=== PATIENT | male | born 1980 | race Caucasian/White ===

== ENCOUNTER 2016-07-25 13:28 | Outpatient (CLI) ==
[2016-05-13 14:57] VITALS: BMI 33.2
[2016-07-25 14:09] LABS: HEMATOCRIT 33.5 % (42.0-52.0); MEAN CORPUSCULAR HEMOGLOBIN 21.5 pg (27.0-31.0); MEAN CORPUSCULAR HGB CONC 29.9 (31.8-35.4); RED BLOOD COUNT 4.65 10^6/ul (4.70-6.10); WHITE BLOOD COUNT 4.41 K/ul (4.2-10.2)
[2016-07-25 14:51] LABS: ALBUMIN 3.5 g/dL (3.4-5.0); ALBUMIN/GLOBULIN RATIO 0.71; BILIRUBIN,TOTAL 0.45 mg/dL (0.00-1.20); BUN/CREATININE RATIO 8.84; CALCIUM 8.9 mg/dL (8.2-10.2); CREATININE 1.13 mg/dL (0.60-1.10); TOTAL PROTEIN 8.4 g/dL (6.4-8.2)
[2016-07-27 13:47] LABS: HIV ANTIBODIES QUALITATIVE NON REACTIVE (Nonreactive)
== END 2016-07-25 13:29 | disposition home or self-care (01) ==
LOC: LAB 13:28
PROVIDERS: ATTEND Nurse Practitioner
DX: L40.0 Psoriasis vulgaris (principal); Z79.899 Other long term (current) drug therapy
CPT/HCPCS: 36415; 80053; 85027; 86701; 86803; 87340

== ENCOUNTER 2016-08-10 12:48 | Outpatient (CLI) ==
[2016-05-13 14:57] VITALS: BMI 33.2
[2016-08-10 13:29] LABS: BASOPHILS # (AUTO) 0.1 K/uL (0-0.2); EOSINOPHILS # (AUTO) 0.1 K/ul (0.0-0.7); EOSINOPHILS % (AUTO) 1.8 % (0.0-7.0); HEMATOCRIT 34.6 % (42.0-52.0); HEMOGLOBIN 10.3 g/dl (14.0-18.0); IMMATURE GRANULOCYTE % (AUTO) 0.4 % (0.0-5.0); LYMPHOCYTES # (AUTO) 1.8 K/uL (0.60-3.4); LYMPHOCYTES % (AUTO) 35.7 (10.0-50.0); MEAN CORPUSCULAR HEMOGLOBIN 20.9 pg (27.0-31.0); MEAN CORPUSCULAR HGB CONC 29.8 (31.8-35.4); MONOCYTES # (AUTO) 0.8 K/uL (0.4-2.0); MONOCYTES % (AUTO) 16.1 (0-10); NEUTROPHILS # (AUTO) 2.2 K/ul (2.0-6.9); PLATELET COUNT 403 10^3/uL (140-440); RED BLOOD COUNT 4.94 10^6/ul (4.70-6.10); WHITE BLOOD COUNT 4.96 K/ul (4.2-10.2)
[2016-08-10 14:02] LABS: ALBUMIN 3.6 g/dL (3.4-5.0); ALBUMIN/GLOBULIN RATIO 0.82; ANION GAP 15.1; BILIRUBIN,TOTAL 0.65 mg/dL (0.00-1.20); BUN/CREATININE RATIO 12.12; CALCIUM 10.3 mg/dL (8.2-10.2); CREATININE 0.99 mg/dL (0.60-1.10); POTASSIUM 3.1 mmol/L (3.5-5.1)
== END 2016-08-10 12:49 | disposition home or self-care (01) ==
LOC: CAR 12:48
PROVIDERS: ATTEND Physician Assistant
DX: R07.9 Chest pain, unspecified (principal)
CPT/HCPCS: 36415; 80053; 84439; 84443; 85025; 93005; 93010

== ENCOUNTER 2016-08-13 09:40 | Observation (INO) ==
[2016-08-13 10:50] LABS: HEMOGLOBIN 9.5 g/dl (14.0-18.0); IMMATURE GRANULOCYTE % (AUTO) 0.4 % (0.0-5.0); LYMPHOCYTES # (AUTO) 1.6 K/uL (0.60-3.4); LYMPHOCYTES % (AUTO) 15.6 (10.0-50.0); MEAN CORPUSCULAR HEMOGLOBIN 20.7 pg (27.0-31.0); MEAN CORPUSCULAR HGB CONC 29.7 (31.8-35.4); MEAN CORPUSCULAR VOLUME 69.7 fl (80.0-94.0); MONOCYTES # (AUTO) 0.9 K/uL (0.4-2.0); MONOCYTES % (AUTO) 8.9 (0-10); NEUTROPHILS # (AUTO) 7.8 K/ul (2.0-6.9); NEUTROPHILS % (AUTO) 75.1; PLATELET COUNT 416 10^3/uL (140-440); RED BLOOD COUNT 4.59 10^6/ul (4.70-6.10)
--- NOTE | 2016-08-13 10:55 | DI ---
EXAM: Chest two view, frontal and lateral views. HISTORY: Chest pain. COMPARISON: 05/13/2016. FINDINGS: The heart size is normal. There is no pulmonary vascular congestion. The lungs are norma r. No pleural effusion or pneumothorax is seen. No acute osseous abnormality identified. Since prior study, there has been no significant interval change. IMPRESSION: No acute cardiopulmonary process.
[2016-08-13 11:30] LABS: ALBUMIN 3.5 g/dL (3.4-5.0); ALBUMIN/GLOBULIN RATIO 0.88; ANION GAP 15.8; BILIRUBIN,TOTAL 0.37 mg/dL (0.00-1.20); BUN/CREATININE RATIO 14.73; CALCIUM 9.2 mg/dL (8.2-10.2); CREATININE 1.9 mg/dL (0.60-1.10); POTASSIUM 2.8 mmol/L (3.5-5.1); TOTAL PROTEIN 7.5 g/dL (6.4-8.2); TROPONIN I 0.101 ng/ml (0.0000-0.4000)
[2016-08-13] MEDS ORDERED: SODIUM CHLORIDE 1,000 ML IV STA (11:49)
[2016-08-13 12:14] LABS: OCCULT BLOOD INTERNAL QC 1 INTERNAL QC VALID; OCCULT BLOOD SAMPLE 1 NEGATIVE (NEGATIVE)
[2016-08-13 12:25] LABS: PARTIAL THROMBOPLASTIN TIME < 21.0 SEC (23.9-40.0); PROTHROMBIN TIME 10.9 SEC (9.3-11.0)
--- NOTE | 2016-08-13 12:44 | CT ---
EXAM: CT ABDOMEN AND PELVIS HISTORY: Anemia TECHNIQUE: CT abdomen and pelvis without intravenous contrast. Images were reconstructed using 5 m m section thickness. Reformations were prepared. COMPARISON: None FINDINGS: Diagnostic limitations exist without including contrast enhanced images. No focal hepatic or spleni c lesions. Gallbladder is collapsed, grossly unremarkable otherwise. Pancreas and adrenal glands a ppear normal. Kidneys and ureters appear normal. Normal abdominal aorta. No evidence of retroperi toneal or mesenteric lymphadenopathy. A few prominent nonspecific bilateral inguinal lymph nodes ar e seen. No obvious gastric pathology. No appendix is seen. General bowel gas pattern and appearance is wit hin normal limits. No diverticulosis is obvious. Urinary bladder is unremarkable. There is no mili dence of prostate enlargement. No ascites or inflammatory infiltration of the abdominal fat. Ventral abdominal wall is intact without herniation. Bones appear appropriate for age. Lung bases are clear. There is no pneumoperitoneum. IMPRESSION: No acute intra-abdominal or pelvic abnormality. No obvious etiology for anemia was fo und. Consider further workup.
--- NOTE | 2016-08-13 13:01 | ED.PDOC ---
General ED Provider: Dr. CLEOPATRA FRANKS Chief Complaint: Chest Pain Stated Complaint: chest pain Time Seen by Physician: 10:00 Mode of Arrival: Walk-In Information Source: Patient Exam Limitations: No limitations Primary Care Provider: BROCK OCONNELL Nursing and Triage Documentation Reviewed and Agree: Yes Cardiovascular Complaint Exam - Chest Pain Complaint/Exam Onset: Gradual Duration: chest pain Symptoms Are: Still present Initial Severity: Moderate Current Severity: Moderate Location: Reports: Midsternal Pain Radiates: Reports: None Character: Reports: Dull, Aching Aggravating: Reports: None Alleviating: Reports: None Associated Signs and Symptoms: Denies: Diaphoresis, Nausea, Vomiting, Fever, Palpitations, Cough, Hemoptysis, Back pain, Abdominal pain, Dizziness, Short of air, Calf pain, Calf swelling Related History: Reports: Similar episode History of Healthcare-Acquired Pneumonia: Reports: No AMI/ACS Risk Factors: Reports: Hypertension TAD Risk Factors: Reports: Hypertension Prior Care for this Complaint: No Recent Stress Test: No Recent Echo/LV Function: No JVD Present: No Subcutaneous Emphysema Present: No Diminshed Breath Sounds: No Reproducible Chest Wall Pain: No Bilateral Pulses Present: No Unequal Pulses Noted: No If Risk Factors for AMI/ACS Consider: EKG, Cardiac Enzymes Review of Systems - Review Of Systems Constitutional: Reports: No symptoms Eyes: Reports: No symptoms Ears, Nose, Mouth, Throat: Reports: No symptoms Respiratory: Reports: No symptoms Cardiac: Reports: Chest pain GI: Reports: No symptoms : Reports: No symptoms Musculoskeletal: Reports: No symptoms Skin: Reports: No symptoms Neurological: Reports: No symptoms Endocrine: Reports: No symptoms Hematologic/Lymphatic: Reports: No symptoms All Other Systems: Reviewed and Negative Past Medical History - Past Medical History Previously Healthy: No Endocrine: Reports: None Cardiovascular: Reports: Hypertension Respiratory: Reports: None Hematological: Reports: None Gastrointestinal: Reports: None Genitourinary: Reports: None Neuro/Psych: Reports: None Musculoskeletal: Reports: Arthritis, Joint Pain Cancer: Reports: None - Surgical History General Surgical History: Reports: Orthopedic (ankle ) - Family History Family History: Reports: None - Social History Smoking Status: Current every day smoker Hx Substance Use: No Alcohol Screening: Heavy Physical Exam - Physical Exam Appearance: Well-appearing, No pain distress, Well-nourished Eyes: SHO, EOMI, Conjunctiva clear ENT: Ears normal, Nose normal, Oropharynx normal Respiratory: Airway patent, Breath sounds clear, Breath sounds equal, Respirations nonlabored Cardiovascular: RRR, Pulses normal, No rub, No murmur GI/: Soft, Nontender, No masses, Bowel sounds normal, No Organomegaly Musculoskeletal: Normal strength, ROM intact, No edema, No calf tenderness Skin: Warm, Dry, Normal color Neurological: Sensation intact, Motor intact, Reflexes intact, Cranial nerves intact, Alert, Oriented Psychiatric: Affect appropriate, Mood appropriate Interpretation - Radiology Interpretation Radiology Interpretation By: Radiologist Radiology Results: No acute changes - Hospice Case Manager Rate: Tachy Rhythm: Sinus - EKG Interpretation Rate: Tachy Rhythm: Sinus Physician Notification - Case Discussed Physician Notified: [email or web address] Time of Notification: 13:00 (admitt) Critical Care Note - Critical Care Note Total Time (mins): 0 Course - Course Hematology/Chemistry: 08/13/16 10:40 08/13/16 10:40 Orders, Labs, Meds: Lab Review 08/13/16 08/13/16 10:40 11:45 WBC 10.40 H D RBC 4.59 L Hgb 9.5 L Hct 32.0 L MCV 69.7 L MCH 20.7 L MCHC 29.7 L RDW Coeff of Lissy 20.4 H Plt Count 416 Immature Gran % (Auto) 0.4 Neut % (Auto) 75.1 Lymph % (Auto) 15.6 Colbert % (Auto) 8.9 Eos % (Auto) 0.0 Baso % (Auto) 0.0 Immature Gran # (Auto) 0.0 Neut # 7.8 H Lymph # 1.6 Colbert # 0.9 Eos # 0.0 Baso # 0.0 PT 10.9 INR 1.06 APTT < 21.0 L D-Dimer < 0.19 L Sodium 136 Potassium 2.8 L Chloride 97 L Carbon Dioxide 26 Anion Gap 15.8 BUN 28 H Creatinine 1.90 H D Estimated GFR (MDRD) 40.00 BUN/Creatinine Ratio 14.73 Glucose 266 H Calcium 9.2 Total Bilirubin 0.37 AST 25 ALT 27 Alkaline Phosphatase 78 Total Creatine Kinase 52 Troponin I 0.1010 Total Protein 7.5 Albumin 3.5 Globulin 4.0 Albumin/Globulin Ratio 0.88 TSH 2.642 Free T4 0.93 Stl Occult Blood (IFOB) Negative Stool Occult Blood #2 Pending Stool Occult Blood #3 Pending Orders Category Date Time Status EKG-(ED ONLY) Stat CARDIO 08/13/16 10:26 Completed ED IV/MEDIPORT/POWERPORT .ONCE EMERGENCY 08/13/16 10:26 Active CBC W/ AUTO DIFF Stat LAB 08/13/16 10:40 Completed COMPREHENSIVE METABOLIC PANEL Stat LAB 08/13/16 10:40 Completed CREATINE KINASE Stat LAB 08/13/16 10:40 Completed D-DIMER Stat LAB 08/13/16 10:40 Completed FREE T4 (FREE THYROXINE) Stat LAB 08/13/16 10:40 Completed MOLECULAR GROUP A STREP Stat LAB 08/13/16 10:40 Results OCCULT BLOOD, STOOL Stat LAB 08/13/16 11:45 Results PARTIAL THROMBOPLASTIN TIME Stat LAB 08/13/16 10:40 Completed PT WITH INR Stat LAB 08/13/16 10:40 Completed STREP SCREEN Stat LAB 08/13/16 10:40 Results THYROID STIMULATING HORMONE Stat LAB 08/13/16 10:40 Completed TROPONIN I Stat LAB 08/13/16 10:40 Completed 0.9 % Sodium Chloride [Saline Flush] MEDS 08/13/16 10:26 Active 1 syr IVF PRN PRN Sodium Chloride 0.9% [Sodium Chloride] 1,000 ml MEDS 08/13/16 11:49 Discontinued IV BOLUS CHEST, 2 VIEWS PA & LAT Stat RADS 08/13/16 10:[address] ABDOMEN/PELVIS WO CONTRAST Stat RADS 08/13/16 11:39 Completed Medications Generic Name Dose Route Start Last Admin Trade Name Freq PRN Reason Stop Dose Admin Sodium Chloride 1 syr 08/13/16 10:26 08/13/16 10:54 Saline Flush IVF 1 syr PRN PRN Administration To flush IV Discontinued Medications Generic Name Dose Route Start Last Admin Trade Name Freq PRN Reason Stop Dose Admin Sodium Chloride 1,000 mls @ 1,000 mls/hr 08/13/16 11:49 08/13/16 11:52 Sodium Chloride IV 08/13/16 12:48 1,000 mls/hr BOLUS STA Administration Vital Signs: Temp Pulse Resp BP Pulse Ox 08/13/16 11:09 100/60 08/13/16 09:41 97.6 F 132 H 16 123/67 97 VIDAL Risk Score VIDAL Risk Score: Risk Score Odds of by 30D 0 0.1 (0.1-0.2) 1 0.3 (0.2-0.3) 2 0.4 (0.3-0.5) 3 0.7 (0.6-0.9) 4 1.2 (1.0-1.5) 5 2.2 (1.9-2.6) 6 3.0 (2.5-3.6) 7 4.8 (3.8-6.1) Departure - Departure Time of Disposition: 13:00 Disposition: HOME SELF-CARE Discharge Problem: Chest pain, Renal insufficiency, Hypokalemia Instructions: Angina (ED), Chest Pain (ED) Condition: Good Pt referred to PMD for follow-up: Yes Allergies/Adverse Reactions: Allergies No Known Allergies Allergy (Unverified 08/13/16 09:45) Home Medications: Ambulatory Orders Hydrochlorothiazide 50 mg PO DAILY 08/13/16 Hydrocodone Bit/Acetaminophen [Dixmont 5-325] 1 tab PO BEDTIME PRN 08/13/16 Hydrocodone Bit/Acetaminophen [Dixmont 5-325] 1 tab PO BID 08/13/16 Lisinopril 20 mg PO DAILY 08/13/16 Methylprednisolone [Medrol] 35 mg PO DAILY 08/13/16 Metoprolol Tartrate [Lopressor] 50 mg PO BID 08/13/16
[2016-08-13] MEDS ORDERED: POTASSIUM CHLORIDE PREMIX RUN 10 MEQ in PREMIX 100 ML WATER 1 BAG IV STA (13:13)
[2016-08-13] MEDS: SODIUM CHLORIDE 1,000 ML IV SCH (14:30)
[2016-08-13 14:54] VITALS: BMI 34.1
[2016-08-13] MEDS: BENADRYL PO STA ×2 (15:22→15:25)
[2016-08-13] MEDS: TOPROL XL PO SCH (15:22)
[2016-08-13 15:37] LABS: IMMATURE RETIC FRACTION 40.9; RETICULOCYTE % 2.32 %
[2016-08-13 16:58] LABS: OCCULT BLOOD INTERNAL QC 2 INTERNAL QC VALID; OCCULT BLOOD INTERNAL QC 3 INTERNAL QC VALID; OCCULT BLOOD SAMPLE 2 NO SPECIMEN RECEIVED (NEGATIVE); OCCULT BLOOD SAMPLE 3 NO SPECIMEN RECEIVED (NEGATIVE)
[2016-08-13 16:59] LABS: ANION GAP 12.7; BUN/CREATININE RATIO 19.14; CALCIUM 8.5 mg/dL (8.2-10.2); CREATININE 1.41 mg/dL (0.60-1.10); FERRITIN 10.45 ng/mL (21.81-274.66); FOLATE 2.5 ng/mL (3.1-20.5)
[2016-08-13] MEDS: PROTONIX PO SCH (17:02)
[2016-08-13] MEDS: CARAFATE PO SCH ×2 (17:02→20:46)
[2016-08-13 17:06] LABS: POTASSIUM 2.7 mmol/L (3.5-5.1)
[2016-08-13] MEDS ORDERED: POTASSIUM CHL 10% ORAL SOL PO STA ×2 (17:13)
[2016-08-13 19:28] LABS: TROPONIN I 0.123 ng/ml (0.0000-0.4000)
[2016-08-13] MEDS: XANAX PO SCH (20:46)
[2016-08-13] MEDS ORDERED: POTASSIUM CHL 10% ORAL SOL PO ONE ×2 (21:00)
[2016-08-13] MEDS ORDERED: LOPRESSOR PO SCH (21:00)
[2016-08-14] MEDS: SODIUM CHLORIDE 1,000 ML IV SCH (02:12)
[2016-08-14 03:24] LABS: BASOPHILS % (AUTO) 0.1 % (0.0-3.0); EOSINOPHILS % (AUTO) 0.1 % (0.0-7.0); HEMATOCRIT 29.6 % (42.0-52.0); HEMOGLOBIN 8.5 g/dl (14.0-18.0); IMMATURE GRANULOCYTE % (AUTO) 0.1 % (0.0-5.0); LYMPHOCYTES # (AUTO) 3.1 K/uL (0.60-3.4); LYMPHOCYTES % (AUTO) 40.4 (10.0-50.0); MEAN CORPUSCULAR HEMOGLOBIN 20.5 pg (27.0-31.0); MEAN CORPUSCULAR HGB CONC 28.7 (31.8-35.4); MEAN CORPUSCULAR VOLUME 71.3 fl (80.0-94.0); MONOCYTES % (AUTO) 13.4 (0-10); NEUTROPHILS # (AUTO) 3.5 K/ul (2.0-6.9); NEUTROPHILS % (AUTO) 45.9; PLATELET COUNT 322 10^3/uL (140-440); RED BLOOD COUNT 4.15 10^6/ul (4.70-6.10); WHITE BLOOD COUNT 7.55 K/ul (4.2-10.2)
[2016-08-14 03:44] LABS: ALBUMIN/GLOBULIN RATIO 0.91; BILIRUBIN,TOTAL 0.38 mg/dL (0.00-1.20); BUN/CREATININE RATIO 18.25; CALCIUM 8.1 mg/dL (8.2-10.2); CREATININE 1.26 mg/dL (0.60-1.10); TOTAL PROTEIN 6.3 g/dL (6.4-8.2)
[2016-08-14 03:52] LABS: TROPONIN I 0.117 ng/ml (0.0000-0.4000)
[2016-08-14] MEDS: CARAFATE PO SCH ×2 (05:48→11:50)
[2016-08-14] MEDS: PROTONIX PO SCH (05:48)
[2016-08-14] MEDS ORDERED: POTASSIUM CHL 10% ORAL SOL PO STA (08:35)
[2016-08-14] MEDS: TOPROL XL PO SCH (08:57)
[2016-08-14] MEDS ORDERED: ZESTRIL PO SCH (09:00)
[2016-08-14] MEDS ORDERED: NON-FORMULARY MEDICATION (Lisinopril [Lisinopril] 20 MG) PO SCH ×22 (09:00)
[2016-08-14] MEDS ORDERED: HYDROCHLOROTHIAZIDE 50 MG PO SCH (09:00)
[2016-08-14] MEDS ORDERED: HYDROCHLOROTHIAZIDE PO SCH (09:00)
[2016-08-14] MEDS: XANAX PO SCH (10:09)
[2016-08-14] MEDS ORDERED: POTASSIUM CHL 10% ORAL SOL PO ONE (10:30)
[2016-08-14 10:47] VITALS: BP 128/82; TEMP 98
--- NOTE | 2016-08-14 12:38 | HP ---
DATE OF SERVICE: 08/13/16 REASON FOR HOSPITALIZATION: Chest tightness and abnormal labs. HISTORY OF PRESENT ILLNESS: The patient is a 35 year old male who has been going to the intertype operator for the Psoriatic arthritis arthritis. The patient's medications were recently changed they increased his Prednisone but ever since that the patient was having palpitations and panicky and jittery and chest tightness. He has some blood work done on the weekend and they told that potassium was low. His panicking was getting worse and was feeling jittery and was having some chest tightness so he came to the emergency room today. He was seen Dr. Guerra in the emergency room. WBC was 10.40, hgb 9.5, D-dimer is negative, potassium was 2.8, BUN 28, creatinine 1.90, Stool Occult blood test is negative, CT of abdominal and pelvis is negative. At that time the patient is admitted to the hospital for medication reaction and hypokalemia, anemia which has dropped from 14 in April to 9.5 today with history of psoriatic arthritis, chronic steroid use. REVIEW OF SYSTEMS: CONSTITUTIONAL: No night sweats. Weakness and tired ness. No fever or chills. HEENT: Eyes: No visual changes. No eye pain. No eye discharge. ENT: No runny nose. No epistaxis. No sinus pain. No sore throat. No odynophagia. No ear pain. No congestion. RESPIRATORY: No cough, no congestion. No hemoptysis. CARDIOVASCULAR: No angina symptoms. No CHF symptoms. No atypical chest pain for CAD. Palpitations. No shortness of breath. Jitteriness. GASTROINTESTINAL: No abdominal pain. No nausea or vomiting. No diarrhea or constipation. No hematemesis. No hematochezia. GENITOURINARY: No urgency. No frequency. No dysuria. No hematuria. No obstructive symptoms. No discharge. No pain. No significant abnormal bleeding. MUSCULOSKELETAL: Aches and pains. No joint swelling. No arthritis. NEUROLOGICAL: No headache. No neck pain. No syncope. No seizures. No dizziness. PSYCHIATRIC: Not anxious. No depression. No suicidal thoughts. No homicidal thoughts. SKIN: No rash. No lesions. No wounds. ENDOCRINE: No unexplained weight loss. No weight gain. HEMATOLOGIC/LYMPHATIC: No anemia. No purpura. No petechiae. No prolonged or excessive bleeding. No palpable lymph nodes. PERSONAL/FAMILY/SOCIAL HISTORY: The patient does drink one to two beers every day. Uses tobacco. and lives with the . Family history is significant for Diabetes, Breast cancer and Thyroid problems. PAST MEDICAL/SURGICAL PROBLEMS: Hypertension Peptic Ulcer disease with GI bleed secondary to Ibuprofen GERD Osteoarthritis Psoriatic arthritis Hyperglycemia from steroids Past surgical history Appendectomy History of GI bleed in 2016 MEDICATIONS: Medrol dose pack Hydrochlorothiazide Lisinopril Metoprolol Humira ALLERGIES: No known allergies PHYSICAL EXAMINATION: VITAL SIGNS: Blood pressure 123/67, respiratory rate 16, heart rate 132 sinus tachy, temperature 97.6 and saturation is 97%. HEENT: Head normocephalic, atraumatic. Eyes: Extraocular muscles are intact. Pupils are equal, round and reactive to light and accommodation. Ears: No lesions. Nose appeared normal. Throat: No exudate or erythema. Possible tenderness in the sternum area and some discomfort in the epigastric area. NECK: Supple. No JVD, no carotid bruit. No lymphadenopathy or thyromegaly. LUNGS: Clear to auscultation. Percussion note normal. Chest symmetrical. HEART: S1, S2, no S3. No murmurs. No cyanosis or clubbing. No ascites. Pulses: Dorsalis pedis and posterior tibial pulses +1 to +2 both sides. ABDOMEN: Soft. Non tender. Bowel sounds active. No CVA tenderness. No mass felt. EXTREMITIES: No edema. Full range of motion of all extremities, equal. NEUROLOGIC: No focal deficit. Cranial nerves II through XII are grossly intact. No headache, no double vision or headache. SKIN: Not dry. Intact. Turgor - normal. LYMPHATIC: No palpable lymph nodes/no lymphedema. MUSCULOSKELETAL: Normal joints with no swelling. Muscle tone is normal. LABS: WBC 10.40, hgb 9.5, hct 32.0, plt count 416, D-dimer less than 0.19, sodium 136 , potassium 2.8, chloride 97, bicarb 26, BUN 28 and creatinine 1.90. Stool occult blood test is negative. ASSESSMENT: 1. Medication reaction with chest pain 2. Anemia rule out GI bleed 3. Questionable panic attack 4. History of psoriatic arthritis 5. Recent GI bleed in May 2016 6. Peptic Ulcer disease PLAN: 1. Admit patient to the regular floor 2. CBC and CMP today and daily 3. Cardiac enzymes and Troponin 4. IV fluids 5. Xanax 0.25mg twice a day 6. Protonix 7. Carafate 8. Continue home medication 9. Replace Potassium IV 10. IV fluids at 75ml per hour NOTE: After admission I did get a call from the nurse in the evening saying that he could not tolerated the IV potassium so PO potassium 60meq twice a day pills were given. Will follow the patient in daily rounds. TIME SPENT: More than 65 minutes. RYAN
--- NOTE | 2016-08-14 12:43 | PCM.PROG ---
Attending Provider: ATTENDING PROVIDER: Dr. ROXY FAIRCHILD DATE OF SERVICE: 08/14/16 SUBJECTIVE: This 35 year old WHITE/ M was hospitalized 08/13/16. The patient is admitted with chest pain. The patient had endoscopy in May of 2016 and was admitted to [facility] with upper GI bleed. He was started on Xanax twice a day, Carafate and Protonix. He had no more tightness in the chest and was able to sleep fine. No black or tarry stools. is in the room. REVIEW OF SYSTEMS: CONSTITUTIONAL: No fever, no chills. ENDOCRINE: No weight loss or weight gain. HEENT: No sinus drainage, no sore throat. CVS: No angina symptoms. No CHF symptoms. No palpitations. No atypical chest pain for CAD. No shortness of breath. RESPIRATORY: No cough, no hemoptysis. GI: No melena. No abdominal pain. No nausea, no vomiting. : No hematuria. No polyuria. SKIN: No rash. No wounds. MUSCULOSKELETAL: No pain. NEEDLE STRAIGHTENER: No blackout, no dizziness. No headache. No double vision. PSYCHIATRIC: Not anxious; no depression. No suicidal thoughts. No homicidal thoughts. PHYSICAL EXAMINATION: GENERAL: Lying in bed in no distress. VITAL SIGNS: Temperature 97.5 F, Pulse 88, Respiratory Rate 16, BP 119/68, Pulse Ox 97% HEENT: Normocephalic, atraumatic. Mucosa is dry, pallor positive. NECK: No JVP, no carotid bruit. No lymphadenopathy. CARDIAC: S1, S2, no S3. No murmur, gallop or regurgitation. LUNGS: Clear to auscultation. ABDOMEN: Soft, non-tender. Bowel sounds active. No rigidity, guarding or CVA tenderness. EXTREMITIES: No clubbing, cyanosis or edema. NEUROLOGIC: Awake, alert and oriented x3. LYMPHATIC: No palpable lymph nodes SKIN: Not dry. Intact. MUSCULOSKELETAL: No joint swelling. LAB REVIEW: 08/14/16 03:10 08/14/16 03:10 08/14/16 03:10: WBC 7.55, RBC 4.15 L, Hgb 8.5 L, Hct 29.6 L, MCV 71.3 L, MCH 20.5 L, MCHC 28.7 L, RDW Coeff of Lissy 19.9 H, Plt Count 322, Immature Gran % ( Auto) 0.1, Neut % (Auto) 45.9, Lymph % (Auto) 40.4, Whitley % (Auto) 13.4 H, Eos % (Auto) 0.1, Baso % (Auto) 0.1, Immature Gran # (Auto) 0.0, Neut # 3.5, Lymph # 3.1, Whitley # 1.0, Eos # 0.0, Baso # 0.0, Sodium 137, Potassium 3.0 L, Chloride 102, Carbon Dioxide 27, Anion Gap 11.0, BUN 23 H, Creatinine 1.26 H, Estimated GFR (MDRD) 64.00, BUN/Creatinine Ratio 18.25, Glucose 144 H, Calcium 8.1 L, Total Bilirubin 0.38, AST 23, ALT 25, Alkaline Phosphatase 69, Total Creatine Kinase 37, Troponin I 0.1170, Total Protein 6.3 L, Albumin 3.0 L, Globulin 3.3, Albumin/Globulin Ratio 0.91 08/13/16 18:55: Total Creatine Kinase 40, Troponin I 0.1230 08/13/16 15:30: Reticulocyte % (Auto) 2.32, Absolute Retic 0.1007, Retic Hgb Equivalent 23.2, Sodium 137, Potassium 2.7 L*, Chloride 100, Carbon Dioxide 27, Anion Gap 12.7, BUN 27 H, Creatinine 1.41 H, Estimated GFR (MDRD) 57.00, BUN/ Creatinine Ratio 19.14, Glucose 100 D, Calcium 8.5, Iron 12 L, TIBC 478 H, % Saturation 3, Unsat Iron Binding 466 H, Ferritin 10.45 L, Vitamin B12 199 L, Folate 2.5 L ASSESSMENT: 1. Medication reaction (Humira with high dose of steroids) 2. Anemia 3. Peptic ulcer disease 4. Recent history of GI bleed 5. Psoriatic arthritis 6. Hypertension 7. Anxiety PLAN: 1. Out of bed, activity as tolerates 2. Continue Xanax 0.25 mg twice a day 3. Protonix 40 mg twice a day 4. Carafate a.c. and h.s. Plan and coordination of the patient's care discussed in the presence of Landscape Account Manager and nurse. CONDITION: Stable SCRIBED BY: BRIDGETTE MCCLURE, [employer] Architect scribed while in presence of service performed by Dr. ROXY FAIRCHILD on 08/14/16 ([id number])
[2016-08-14] MEDS ORDERED: TYLENOL PO PRN (12:48)
--- NOTE | 2016-08-28 12:38 | DS ---
DATE OF SERVICE: 08/14/16 FINAL DIAGNOSIS: 1. Chest tightness 2. Palpitations secondary to the medication changes 3. History of Anemia, chronic 4. Psoriatic arthritis 5. Recent history of peptic ulcer disease with GI bleed 6. Status post endoscopy in May 2016. 7. Anxiety disorder 8. Hypertension 9. Appendectomy DISCHARGE INSTRUCTIONS: Discharge the patient home. Continue home medications. Keep the followup with the rheumatologists and GI specialist in [place]. MEDICATIONS AT DISCHARGE: Humira Hydrochlorothiazide Lisinopril Medrol dose-casey take half of the tablets all the time NEW PRESCRIPTIONS: Zantac 150mg PO twice a day Lisinopril 20mg PO daily Carafate 1gram and HS DIET INSTRUCTIONS: Cardiac and Healthy and iron rich food ACTIVITY: As much as tolerated. SMOKING: Former smoker DISEASE SPECIFIC EDUCATION: Medication side effects Anemia HOSPITAL COURSE: Ronald Stover who is a 35 year old gentleman very nice was recently seen and evaluated by the pizza cook. The patient gets Humira from there. The patient went to the inspector fibrous wallboard for the skin rash. The patient was put on the Medrol dose-pack. Ever since he got started taking those combination the patient was having palpation, chest tightness and palpation was getting worse so he called the inspector fibrous wallboard and they said to come to the emergency room. In the emergency room the patient's EKG and cardiac enzymes were negative. Hgb was 9.5 and at that time we got the labs from the [facility] which was the hgb was 8.5 because of the chest tightness and palpation possible medication side effect the patient admitted for the observation. With the given IV fluids that patient started feeling better and blood pressure was high so Lisinopril was given and Xanax was given 0.25mg. By next day he refused to take the Xanax and he says that he is feeling better and he doesn't want the Xanax. With the Lisinopril the blood pressure was controlled. Weight loss and diet been discussed. Advised not to take the Medrol dose and have a followup with the inspector fibrous wallboard. TIME SPENT: More than 45 minutes. RYAN
== END 2016-08-14 15:20 | disposition home or self-care (01) ==
LOC: ED 09:40 → MEDSURG B 13:14 → INTOOBSV 13:14
PROVIDERS: ADMIT Emergency Medicine; ATTEND Emergency Medicine
DX: R07.89 Other chest pain (principal); R00.2 Palpitations; T39.4X5A Adverse effect of antirheumatics, not elsewhere classified, initial encounter; T38.0X5A Adverse effect of glucocorticoids and synthetic analogues, initial encounter; D50.0 Iron deficiency anemia secondary to blood loss (chronic); L40.50 Arthropathic psoriasis, unspecified; I10 Essential (primary) hypertension; N28.9 Disorder of kidney and ureter, unspecified; E87.6 Hypokalemia; F41.9 Anxiety disorder, unspecified; Z79.52 Long term (current) use of systemic steroids; Z87.19 Personal history of other diseases of the digestive system; Z98.890 Other specified postprocedural states
CPT/HCPCS: 36415; 80048; 80053; 82272; 82550; 82607; 82728; 82746; 83540; 83550; 84132; 84439; 84443; 84466; 84484; 85025; 85045; 85379; 85610; 85730; 87651; 87880; 93005; 93010; 96360; 96361; 96365; 99217; 99219; 99284

== ENCOUNTER 2016-10-17 13:17 | Outpatient (CLI) ==
[2016-10-17 13:53] LABS: HEMATOCRIT 44.5 % (42.0-52.0); HEMOGLOBIN 13.2 g/dl (14.0-18.0); MEAN CORPUSCULAR HEMOGLOBIN 23.1 pg (27.0-31.0); MEAN CORPUSCULAR HGB CONC 29.7 (31.8-35.4); MEAN CORPUSCULAR VOLUME 77.9 fl (80.0-94.0); RED BLOOD COUNT 5.71 10^6/ul (4.70-6.10); WHITE BLOOD COUNT 4.9 K/ul (4.2-10.2)
[2016-10-17 14:02] LABS: ALBUMIN 3.9 g/dL (3.4-5.0); ALBUMIN/GLOBULIN RATIO 0.89; ANION GAP 19.9; BILIRUBIN,TOTAL 0.58 mg/dL (0.00-1.20); BUN/CREATININE RATIO 11.57; CALCIUM 9.2 mg/dL (8.2-10.2); CREATININE 1.21 mg/dL (0.60-1.10); POTASSIUM 3.9 mmol/L (3.5-5.1); TOTAL PROTEIN 8.3 g/dL (6.4-8.2)
== END 2016-10-17 13:18 | disposition home or self-care (01) ==
LOC: LAB 13:17
PROVIDERS: ATTEND Dermatology
DX: Z51.81 Encounter for therapeutic drug level monitoring (principal); Z79.899 Other long term (current) drug therapy; L40.8 Other psoriasis
CPT/HCPCS: 36415; 80053; 85027

== ENCOUNTER 2017-01-23 17:15 | Observation (INO) ==
[2017-01-23 17:48] LABS: BASOPHILS % (AUTO) 0.8 % (0.0-3.0); EOSINOPHILS % (AUTO) 0.5 % (0.0-7.0); HEMATOCRIT 44.6 % (42.0-52.0); HEMOGLOBIN 14.8 g/dl (14.0-18.0); IMMATURE GRANULOCYTE % (AUTO) 0.3 % (0.0-5.0); LYMPHOCYTES # (AUTO) 1.3 K/uL (0.60-3.4); LYMPHOCYTES % (AUTO) 34.6 (10.0-50.0); MEAN CORPUSCULAR HEMOGLOBIN 25.3 pg (27.0-31.0); MEAN CORPUSCULAR HGB CONC 33.2 (31.8-35.4); MEAN CORPUSCULAR VOLUME 76.2 fl (80.0-94.0); MONOCYTES # (AUTO) 0.5 K/uL (0.4-2.0); MONOCYTES % (AUTO) 12.4 (0-10); NEUTROPHILS % (AUTO) 51.4; PLATELET COUNT 131 10^3/uL (140-440); RED BLOOD COUNT 5.85 10^6/ul (4.70-6.10); WHITE BLOOD COUNT 3.87 K/ul (4.2-10.2)
[2017-01-23] MEDS ORDERED: ATIVAN IVP STA (17:55)
[2017-01-23] MEDS ORDERED: CATAPRES PO STA ×2 (17:55→18:30)
[2017-01-23 17:59] LABS: ANISOCYTOSIS NOT PRESENT (NOT PRESENT); HYPOCHROMASIA 1+ (NOT PRESENT); TARGET CELLS 2+ (NOT PRESENT)
--- NOTE | 2017-01-23 18:00 | ED.PDOC ---
General Stated Complaint: here today with mom--not eating or drinking much--feels depressed, marital issues--notes tremor Time Seen by Physician: 17:58 Mode of Arrival: Walk-In Information Source: Patient, Family Exam Limitations: No limitations Nursing and Triage Documentation Reviewed and Agree: Yes <RIKA SUAREZ - Last Filed: 01/23/17 18:17> <TYLER CROCKER - Last Filed: 01/23/17 21:47> ED Provider: Dr. TYLER CROCKER Chief Complaint: Behavioral Complaint Primary Care Provider: BROCK OCONNELL Neurological Complaint Exam - Weakness Complaint/Exam Last Known Well: unknown Onset: Gradual Symptoms Are: Still present Timing: Constant Initial Severity: Mild Current Severity: Mild Character: Reports: Weak Aggravating: Reports: None Alleviating: Reports: None Associated Signs and Symptoms: Denies: Nausea, Vomiting, Diaphoresis, Tinnitus, Chest pain, Short of air, Palpitations, Unsteady gait, GI blood loss, Visual changes, Decreased oral intake, Change in medication, Change in diet, OTC meds, Loss of balance Related History: Similar episode Cardiac Risk Factors: Reports: Hypertension CVA Risk Factors: Reports: None JVD Present: No Carotid Bruit Present: No Rectal Heme Positive: No Glascow Coma Scale (see protocol): 15 Nystagmus Present: No Gag Reflex Present: Yes Meningeal Signs Positive: No Focal Weakness: Present: None Focal Sensory Loss: Present: None Gait: Normal [id number]: Abnormal right, Abnormal left (due to tremor) Romberg Test Positive: No Babinski Sign: Negative Right, Negative Left Heel to Toe Normal: Yes Jeanne-Hallpike Test Positive: No Differential Diagnoses: Other Quality Indicator For Non-Traumatic Chest Pain/Syncope: EKG Performed <DANIELARIKA Filed: 01/23/17 18:17> Review of Systems - Review Of Systems Constitutional: Reports: No symptoms Eyes: Reports: No symptoms Ears, Nose, Mouth, Throat: Reports: No symptoms Respiratory: Reports: No symptoms Cardiac: Reports: No symptoms GI: Reports: No symptoms : Reports: No symptoms Musculoskeletal: Reports: No symptoms Skin: Reports: No symptoms Neurological: Reports: Anxiety, Depressed, Emotional problems, Other (tremor) Endocrine: Reports: Flushing Hematologic/Lymphatic: Reports: No symptoms All Other Systems: Reviewed and Negative <DANIELARIKA - Last Filed: 01/23/17 18:17> Past Medical History - Past Medical History Previously Healthy: No Endocrine: Reports: None Cardiovascular: Reports: Hypertension Respiratory: Reports: None Hematological: Reports: None Gastrointestinal: Reports: None Genitourinary: Reports: None Neuro/Psych: Reports: None Musculoskeletal: Reports: Arthritis, Joint Pain Cancer: Reports: None - Surgical History General Surgical History: Reports: Orthopedic (ankle ) - Family History Family History: Reports: None - Social History Smoking Status: Current some day smoker Hx Substance Use: No Alcohol Screening: Occasionally Lives: With family <DANIELARIKA - Last Filed: 01/23/17 18:17> Physical Exam - Physical Exam Appearance: Well-appearing, No pain distress, Well-nourished Eyes: SHO, EOMI, Conjunctiva clear ENT: Ears normal, Nose normal, Oropharynx normal Neck: Supple Respiratory: Airway patent, Breath sounds clear, Breath sounds equal, Respirations nonlabored Cardiovascular: RRR, Pulses normal, No rub, No murmur GI/: Soft, Nontender, No masses, Bowel sounds normal, No Organomegaly Musculoskeletal: Normal strength, ROM intact, No edema, No calf tenderness Skin: Warm, Dry, Normal color Neurological: Alert, Oriented Psychiatric: Affect appropriate, Anxious, Depressed <DANIELARIKA - Last Filed: 01/23/17 18:17> Interpretation - EKG Interpretation Time of EKG #1: 17:42 Rate: Tachy Rhythm: Sinus Ectopy: None [place]: NL ST Segment: Normal Interpretation: Sinus Tachy <TYLER CROCKER - Last Filed: 01/23/17 21:47> Re-Evaluation - Re-Evaluation Time of Re-Evaluation: 21:43 Status: Improved Vital Signs Stable: Yes (BP 125/91, P 91, Sat 96 % ) Pain Level: none <TYLER CROCKER Last Filed: 01/23/17 21:47> Physician Notification - Case Discussed Physician Notified: dr crocker Time of Notification: 07:00 <RIKA SUAREZ - Last Filed: 01/23/17 18:17> Critical Care Note - Critical Care Note Total Time (mins): 35 <TYLER CROCKER Last Filed: 01/23/17 21:47> Course - Course Hematology/Chemistry: 01/23/17 17:30 <ANNA MARIERIKA CABRERA - Last Filed: 01/23/17 18:17> - Course Hematology/Chemistry: 01/23/17 17:30 01/23/17 17:30 <OBITYLER - Last Filed: 01/23/17 21:47> - Course Orders, Labs, Meds: Lab Review 01/23/17 01/23/17 17:30 17:32 WBC 3.87 L RBC 5.85 Hgb 14.8 Hct 44.6 MCV 76.2 L MCH 25.3 L MCHC 33.2 RDW Coeff of Lissy 21.2 H Plt Count 131 L Immature Gran % (Auto) 0.3 Neut % (Auto) 51.4 Lymph % (Auto) 34.6 [place] % (Auto) 12.4 H Eos % (Auto) 0.5 Baso % (Auto) 0.8 Immature Gran # (Auto) 0.0 Neut # 2.0 Lymph # 1.3 [place] # 0.5 Eos # 0.0 Baso # 0.0 Hypochromasia 1+ Anisocytosis Not present Target Cells 2+ Sodium 145 Potassium 3.4 L Chloride 104 Carbon Dioxide 27 Anion Gap 17.4 BUN 5 L Creatinine 0.86 Estimated GFR (MDRD) 100.00 BUN/Creatinine Ratio 5.81 Glucose 129 H Calcium 8.8 Total Bilirubin 1.09 AST 136 H ALT 69 Alkaline Phosphatase 112 Total Protein 8.0 Albumin 4.0 Globulin 4.0 Albumin/Globulin Ratio 1.00 TSH 2.157 Free T4 0.98 Urine Color Dark Urine Clarity Clear Urine pH 6.5 Ur Specific [place] >=1.030 Urine Protein 3+ Urine Glucose (UA) Negative Urine Ketones Trace Urine Blood Trace-lysed Urine Nitrite Negative Urine Bilirubin 2+ Urine Urobilinogen 1.0 Ur Leukocyte Esterase Negative Ur Squamous Epith Cells 0-2 Coarse Granular Casts 2-5 Urine Mucus 1+ Urine Opiates Screen Negative Ur Oxycodone Screen Negative Urine Methadone Screen Negative Ur Propoxyphene Screen Negative Ur Barbiturates Screen Negative U Tricyclic Antidepress Negative Ur Phencyclidine Scrn Negative Ur Amphetamine Screen Negative U Methamphetamines Scrn Negative U Benzodiazepines Scrn Negative Urine Cocaine Screen Negative U Cannabinoids Screen Negative Plasma/Serum Alcohol 325.7 H Orders Category Date Time Status EKG-(ED ONLY) Stat CARDIO 01/23/17 17:24 Completed ED IV/MEDIPORT/POWERPORT .ONCE EMERGENCY 01/23/17 17:54 Active Mental Health Consult [ED MENTAL HEALTH CONSULT] .ONCE EMERGENCY 01/23/17 17: 56 Active CBC W/ AUTO DIFF Stat LAB 01/23/17 17:30 Completed COMPREHENSIVE METABOLIC PANEL Stat LAB 01/23/17 17:30 Completed ETOH LEVEL [BLOOD ALCOHOL] Stat LAB 01/23/17 17:30 Completed FREE T4 (FREE THYROXINE) Stat LAB 01/23/17 17:30 Completed RBC MORPHOLOGY Stat LAB 01/23/17 17:30 Completed THYROID STIMULATING HORMONE Stat LAB 01/23/17 17:30 Completed URINALYSIS C & S IF INDICATED Stat LAB 01/23/17 17:32 Completed URINE DRUG SCREEN (RAPID FOR ED) [DRUG SCREEN, URINE, LAB 01/23/17 17:32 Completed RAPID] Stat 0.9 % Sodium Chloride [Saline Flush] MEDS 01/23/17 17:54 Ordered 1 syr IVF PRN PRN Clonidine HCl [Catapres] MEDS 01/23/17 17:55 Discontinued 0.1 mg PO ONCE STA Clonidine HCl [Catapres] MEDS 01/23/17 18:30 Discontinued 0.1 mg PO ONCE STA Lorazepam Inj [Ativan] MEDS 01/23/17 17:55 Discontinued 1 mg IVP ONCE STA Sodium Chloride 0.9% [Sodium Chloride] 1,000 ml MEDS 01/23/17 18:00 Ordered Folic Acid 1 mg Mvi, Adult No.1 with Vit K [Infuvite Adult] 10 ml Vitamin B-1 Inj [Thiamine] 100 mg IV 250 mls/hr Vitamin B-1 Inj [Thiamine] MEDS 01/23/17 18:02 Discontinued 100 mg IVP ONCE STA Medications Generic Name Dose Route Start Last Admin Trade Name Freq PRN Reason Stop Dose Admin Chlordiazepoxide HCl 5 mg 01/23/17 21:34 Librium PO TID PRN Alcohol Withdrawal Enoxaparin Sodium 40 mg 01/24/17 09:00 Lovenox SUBCUT DAILY MILAGROS Folic Acid 1 mg/ Multivitamins 1,011.2 mls @ 250 mls/hr 01/23/17 18:00 18:43 /Minerals 10 ml/ Thiamine HCl IV 250 mls/hr 100 mg/ Sodium Chloride .Q4H3M MILAGROS Administration Potassium Chloride/Dextrose/Sod Cl 1,000 mls @ 125 mls/hr 01/23/17 22:00 D5%-Ns-Kcl 20 Meq/L Iv Malu IV .Q8H MILAGROS Ondansetron HCl 4 mg 01/23/17 21:34 Zofran 4 Mg/2 Ml IVP Q6H PRN Nausea / Vomiting Sodium Chloride 1 syr 01/23/17 17:54 01/23/17 18:11 Saline Flush IVF 1 syr PRN PRN Administration To flush IV Thiamine HCl 100 mg 01/24/17 09:00 Thiamine IVP DAILY MILAGROS Discontinued Medications Generic Name Dose Route Start Last Admin Trade Name Freq PRN Reason Stop Dose Admin Clonidine 0.1 mg 01/23/17 17:55 01/23/17 18:21 Catapres PO 01/23/17 17:56 0.1 mg ONCE STA Administration Clonidine 0.1 mg 01/23/17 18:30 01/23/17 18:45 Catapres PO 01/23/17 18:31 0.1 mg ONCE STA Administration Lorazepam 1 mg 01/23/17 17:55 01/23/17 18:21 Ativan IVP 01/23/17 17:56 1 mg ONCE STA Administration Thiamine HCl 100 mg 01/23/17 18:02 01/23/17 19:02 Thiamine IVP 01/23/17 18:03 100 mg ONCE STA Administration Vital Signs: Temp Pulse Resp BP Pulse Ox 01/23/17 17:17 99 F 114 H 20 170/119 H 96 Departure <RIKA SUAREZ - Last Filed: 01/23/17 18:17> - Departure Time of Disposition: 21:42 Pt referred to PMD for follow-up: Yes <TYLER CROCKER - Last Filed: 01/23/17 21:47> - Departure Disposition: HOME SELF-CARE Discharge Problem: Suicidal ideations Alcohol intoxication Qualifiers: Complication of substance-induced condition: uncomplicated Qualifier Code: ( F10.920) Alcohol use, unspecified with intoxication, uncomplicated Depression Qualifiers: Depression Type: major depressive disorder Major depression recurrence: single episode Active/Remission status: currently active Major depression episode severity: severe Psychotic features: without psychotic features Qualifier Code: (F32.2) Major depressive disorder, single episode, severe without psychotic features Condition: Fair Allergies/Adverse Reactions: Allergies No Known Allergies Allergy (Verified 01/23/17 17:25) Home Medications: Ambulatory Orders Adalimumab [Humira] 40 mg SQ DIRECTED 08/13/16 Hydrochlorothiazide 50 mg PO DAILY 08/13/16 Lisinopril 20 mg PO DAILY 08/13/16 Metoprolol Succinate 50 mg PO QAM 08/13/16
[2017-01-23] MEDS ORDERED: THIAMINE IVP STA (18:02)
[2017-01-23 18:03] LABS: BILIRUBIN,URINE 2+ (NEGATIVE); KETONES,URINE Trace (NEGATIVE); LEUKOCYTE ESTERASE ,URINE Negative (NEGATIVE); NITRITE,URINE Negative (NEGATIVE); PH,URINE 6.5 (5-9); PROTEIN,URINE 3+ (NEGATIVE); URINE, BLOOD Trace-lysed (NEGATIVE)
[2017-01-23 18:06] LABS: ADD URINE MICROSCOPIC YES
[2017-01-23 18:13] LABS: COCAIN SCREEN,URINE NEGATIVE (NEGATIVE)
[2017-01-23 18:20] LABS: ANION GAP 17.4; BILIRUBIN,TOTAL 1.09 mg/dL (0.00-1.20); BUN/CREATININE RATIO 5.81; CALCIUM 8.8 mg/dL (8.2-10.2); CREATININE 0.86 mg/dL (0.60-1.10); POTASSIUM 3.4 mmol/L (3.5-5.1)
[2017-01-23] MEDS: FOLIC ACID 1 MG, INFUVITE ADULT 10 ML, THIAMINE 100 MG in SODIUM CHLORIDE 1,000 ML IV SCH (18:43)
[2017-01-23] MEDS ORDERED: ZOFRAN 4 MG/2 ML IVP PRN (21:34)
[2017-01-23] MEDS ORDERED: LIBRIUM PO PRN (21:34)
[2017-01-23] MEDS ORDERED: NON-FORMULARY MEDICATION (Adalimumab [Humira] 40 MG) SQ SCH (21:45)
[2017-01-23 22:48] VITALS: BMI 29.9
[2017-01-23] MEDS: D5%-NS-KCL 20 MEQ/L IV SOL 1,000 ML IV SCH (23:55)
[2017-01-24] MEDS: ATIVAN PO PRN ×2 (00:11→05:33)
[2017-01-24] MEDS: FOLIC ACID 1 MG, INFUVITE ADULT 10 ML, THIAMINE 100 MG in SODIUM CHLORIDE 1,000 ML IV SCH (02:55)
[2017-01-24 04:53] LABS: BASOPHILS % (AUTO) 0.6 % (0.0-3.0); EOSINOPHILS % (AUTO) 0.6 % (0.0-7.0); HEMATOCRIT 38.4 % (42.0-52.0); HEMOGLOBIN 12.5 g/dl (14.0-18.0); IMMATURE GRANULOCYTE % (AUTO) 0.3 % (0.0-5.0); LYMPHOCYTES # (AUTO) 0.9 K/uL (0.60-3.4); LYMPHOCYTES % (AUTO) 26.5 (10.0-50.0); MEAN CORPUSCULAR HEMOGLOBIN 25.1 pg (27.0-31.0); MEAN CORPUSCULAR HGB CONC 32.6 (31.8-35.4); MONOCYTES # (AUTO) 0.5 K/uL (0.4-2.0); MONOCYTES % (AUTO) 13.4 (0-10); NEUTROPHILS % (AUTO) 58.6; PLATELET COUNT 89 10^3/uL (140-440); RED BLOOD COUNT 4.99 10^6/ul (4.70-6.10); WHITE BLOOD COUNT 3.44 K/ul (4.2-10.2)
[2017-01-24 05:07] LABS: ANION GAP 18.3; BUN/CREATININE RATIO 8.75; CALCIUM 8.3 mg/dL (8.2-10.2); CREATININE 0.8 mg/dL (0.60-1.10); POTASSIUM 3.3 mmol/L (3.5-5.1)
[2017-01-24] MEDS: ATIVAN IVP PRN ×3 (05:48→23:06)
[2017-01-24] MEDS: D5%-NS-KCL 20 MEQ/L IV SOL 1,000 ML IV SCH (07:32)
[2017-01-24] MEDS ORDERED: HYDROCHLOROTHIAZIDE 50 MG PO SCH (09:00)
[2017-01-24] MEDS ORDERED: NON-FORMULARY MEDICATION (Lisinopril [Lisinopril] 20 MG) PO SCH ×22 (09:00)
[2017-01-24] MEDS: INFUVITE ADULT 10 ML in D5%-NS-KCL 20 MEQ/L IV SOL 1,000 ML IV SCH ×3 (09:08→23:38)
[2017-01-24 09:22] LABS: BILIRUBIN,URINE 1+ (NEGATIVE); KETONES,URINE Negative (NEGATIVE); LEUKOCYTE ESTERASE ,URINE Trace (NEGATIVE); NITRITE,URINE Negative (NEGATIVE); PH,URINE 7.5 (5-9); PROTEIN,URINE 1+ (NEGATIVE); URINE, BLOOD Negative (NEGATIVE)
[2017-01-24 09:26] LABS: ADD URINE MICROSCOPIC YES
[2017-01-24] MEDS ORDERED: INFUVITE ADULT IV ONE ×3 (09:39→23:30)
[2017-01-24] MEDS: ZESTRIL PO SCH (10:07)
[2017-01-24] MEDS: HYDROCHLOROTHIAZIDE PO SCH (10:08)
[2017-01-24] MEDS: TOPROL XL PO SCH (10:08)
[2017-01-24] MEDS: LOVENOX SUBCUT SCH (10:08)
[2017-01-24] MEDS: THIAMINE IVP SCH (10:44)
--- NOTE | 2017-01-24 13:26 | PCM.PROG ---
Attending Provider: ATTENDING PROVIDER: Dr. ROXY FAIRCHILD DATE OF SERVICE: 01/24/17 SUBJECTIVE: This 36 year old WHITE/ M was hospitalized 01/23/17. The patient is sitting up in bed. The patient's mother is in the room. He states he has been drinking more lately due to stress, divorce, and work. The patient had no intentions of hurting himself. He has been having a lot of shaking and was concerned he had had a stroke. He went to the [facility] and it was suggested he come to the hospital. He states he has a counselor that he had been talking to one day a week and was going to Alcoholics Anonymous on Saturday night. REVIEW OF SYSTEMS: CONSTITUTIONAL: No fever, no chills. ENDOCRINE: No weight loss or weight gain. HEENT: No sinus drainage, no sore throat. CVS: No angina symptoms. No CHF symptoms. No palpitations. No atypical chest pain for CAD. No shortness of breath. RESPIRATORY: No cough, no hemoptysis. GI: No melena. No abdominal pain. No nausea, no vomiting. : Burning on urination. SKIN: No rash. No wounds. MUSCULOSKELETAL: No pain. SUPPLY CHAIN SYSTEMS MANAGER: Jittery and shakiness of hands. No blackout, no dizziness. No headache. No double vision. PSYCHIATRIC: Not anxious; no depression. No suicidal thoughts. No homicidal thoughts. PHYSICAL EXAMINATION: GENERAL: Lying in bed in no distress. VITAL SIGNS: Temperature 97.0 F, Pulse 88, Respiratory Rate 16, BP 151/101, Pulse Ox 98% HEENT: Normocephalic, atraumatic. Mucosa is dry, pallor positive. NECK: No JVP, no carotid bruit. No lymphadenopathy. CARDIAC: S1, S2, no S3. No murmur, gallop or regurgitation. LUNGS: Clear to auscultation. ABDOMEN: Soft, non-tender. Bowel sounds active. No rigidity, guarding or CVA tenderness. EXTREMITIES: No clubbing, cyanosis or edema. NEUROLOGIC: Awake, alert and oriented x3. No confabulation, no memory lapse. LYMPHATIC: No palpable lymph nodes SKIN: Not dry. Intact. MUSCULOSKELETAL: No joint swelling. LAB REVIEW: 01/24/17 04:30 01/24/17 04:30 01/24/17 04:30: WBC 3.44 L, RBC 4.99, Hgb 12.5 L, Hct 38.4 L D, MCV 77.0 L, MCH 25.1 L, MCHC 32.6, RDW Coeff of Lissy 20.9 H, Plt Count 89 L D, Immature Gran % ( Auto) 0.3, Neut % (Auto) 58.6, Lymph % (Auto) 26.5, [place] % (Auto) 13.4 H, Eos % (Auto) 0.6, Baso % (Auto) 0.6, Immature Gran # (Auto) 0.0, Neut # 2.0, Lymph # 0.9, [place] # 0.5, Eos # 0.0, Baso # 0.0, Sodium 143, Potassium 3.3 L, Chloride 102, Carbon Dioxide 26, Anion Gap 18.3, BUN 7, Creatinine 0.80, Estimated GFR ( MDRD) 108.00, BUN/Creatinine Ratio 8.75, Glucose 108 H, Calcium 8.3 ASSESSMENT: 1. Alcohol intoxication with early alcohol withdrawal. 2. Anxiety. 3. Psoriatic arthritis and rosacea on Humira. 4. History of hypertension, hasn't taken meds for a week. PLAN: 1. Metoprolol 2. Add MVI to IV fluids 3. Thiamine 100 mg IV push daily 4. Librium 25 mg q.8hr 5. Ativan p.r.n. (only for severe withdrawal symptoms) Plan and coordination of the patient's care discussed in the presence of School Physical Therapist and nurse. CONDITION: Stable SCRIBED BY: BRIDGETTE MCCLURE Ssis Developer scribed while in presence of service performed by Dr. ROXY FAIRCHILD on 01/24/17 ([id number])
[2017-01-24] MEDS: LIBRIUM PO SCH ×2 (13:31→21:24)
[2017-01-24] MEDS ORDERED: VASOTEC IV IVP STA (18:59)
[2017-01-25] MEDS: INFUVITE ADULT 10 ML in D5%-NS-KCL 20 MEQ/L IV SOL 1,000 ML IV SCH ×3 (02:34→17:29)
[2017-01-25] MEDS: ATIVAN IVP PRN (02:50)
[2017-01-25] MEDS ORDERED: HALDOL IM STA (03:58)
[2017-01-25] MEDS: LIBRIUM PO SCH ×3 (04:48→20:12)
[2017-01-25 04:55] LABS: BASOPHILS % (AUTO) 0.6 % (0.0-3.0); EOSINOPHILS % (AUTO) 0.4 % (0.0-7.0); HEMATOCRIT 44.3 % (42.0-52.0); HEMOGLOBIN 14.1 g/dl (14.0-18.0); IMMATURE GRANULOCYTE % (AUTO) 0.2 % (0.0-5.0); LYMPHOCYTES # (AUTO) 0.9 K/uL (0.60-3.4); LYMPHOCYTES % (AUTO) 17.1 (10.0-50.0); MEAN CORPUSCULAR HEMOGLOBIN 24.5 pg (27.0-31.0); MEAN CORPUSCULAR HGB CONC 31.8 (31.8-35.4); MONOCYTES # (AUTO) 0.6 K/uL (0.4-2.0); MONOCYTES % (AUTO) 11.2 (0-10); NEUTROPHILS # (AUTO) 3.6 K/ul (2.0-6.9); NEUTROPHILS % (AUTO) 70.5; PLATELET COUNT 110 10^3/uL (140-440); RED BLOOD COUNT 5.75 10^6/ul (4.70-6.10); WHITE BLOOD COUNT 5.09 K/ul (4.2-10.2)
[2017-01-25 05:25] LABS: ANION GAP 15.7; BLOOD UREA NITROGEN 4 mg/dL (7-18); BUN/CREATININE RATIO 4.87; CALCIUM 9.8 mg/dL (8.2-10.2); CARBON DIOXIDE 22 mmol/L (21-32); CHLORIDE 103 mmol/L (98-107); CREATININE 0.82 mg/dL (0.60-1.10); GLUCOSE 125 mg/dL (70-100); POTASSIUM 3.7 mmol/L (3.5-5.1); SODIUM 137 mmol/L (136-145)
[2017-01-25] MEDS ORDERED: INFUVITE ADULT IV ONE ×2 (08:04→17:18)
[2017-01-25] MEDS: HYDROCHLOROTHIAZIDE PO SCH (08:25)
[2017-01-25] MEDS: ZESTRIL PO SCH (08:25)
[2017-01-25] MEDS: LOVENOX SUBCUT SCH (08:26)
[2017-01-25] MEDS: TOPROL XL PO SCH (08:26)
[2017-01-25] MEDS: THIAMINE IVP SCH (08:26)
[2017-01-25] MEDS ORDERED: TOPROL XL PO STA (09:54)
[2017-01-25] MEDS ORDERED: ZESTRIL PO STA (18:43)
[2017-01-26] MEDS ORDERED: INFUVITE ADULT IV ONE (02:00)
[2017-01-26] MEDS: INFUVITE ADULT 10 ML in D5%-NS-KCL 20 MEQ/L IV SOL 1,000 ML IV SCH ×2 (02:07→09:46)
[2017-01-26 04:43] LABS: BASOPHILS % (AUTO) 0.6 % (0.0-3.0); EOSINOPHILS # (AUTO) 0.1 K/ul (0.0-0.7); EOSINOPHILS % (AUTO) 2.7 % (0.0-7.0); HEMATOCRIT 43.7 % (42.0-52.0); HEMOGLOBIN 13.9 g/dl (14.0-18.0); IMMATURE GRANULOCYTE % (AUTO) 0.2 % (0.0-5.0); LYMPHOCYTES # (AUTO) 1.4 K/uL (0.60-3.4); LYMPHOCYTES % (AUTO) 27.1 (10.0-50.0); MEAN CORPUSCULAR HEMOGLOBIN 25.1 pg (27.0-31.0); MEAN CORPUSCULAR HGB CONC 31.8 (31.8-35.4); MONOCYTES # (AUTO) 0.6 K/uL (0.4-2.0); MONOCYTES % (AUTO) 12.1 (0-10); NEUTROPHILS % (AUTO) 57.3; PLATELET COUNT 103 10^3/uL (140-440); RED BLOOD COUNT 5.53 10^6/ul (4.70-6.10)
[2017-01-26 05:02] LABS: ANION GAP 17.5; BUN/CREATININE RATIO 7.22; CALCIUM 9.4 mg/dL (8.2-10.2); CREATININE 0.83 mg/dL (0.60-1.10); POTASSIUM 3.5 mmol/L (3.5-5.1)
[2017-01-26] MEDS: LIBRIUM PO SCH ×3 (05:50→21:52)
[2017-01-26] MEDS: ZESTRIL PO SCH ×2 (09:33→21:52)
[2017-01-26] MEDS: TOPROL XL PO SCH (09:33)
[2017-01-26] MEDS: HYDROCHLOROTHIAZIDE PO SCH (09:33)
[2017-01-26] MEDS: LOVENOX SUBCUT SCH (09:33)
[2017-01-26] MEDS: THIAMINE IVP SCH (09:46)
[2017-01-26] MEDS ORDERED: INFUVITE ADULT 10 ML in D5%-NS-KCL 20 MEQ/L IV SOL 1,000 ML IV SCH (13:48)
[2017-01-27] MEDS ORDERED: INFUVITE ADULT IV ONE (01:01)
[2017-01-27 05:29] LABS: BASOPHILS # (AUTO) 0.1 K/uL (0-0.2); BASOPHILS % (AUTO) 0.9 % (0.0-3.0); EOSINOPHILS # (AUTO) 0.2 K/ul (0.0-0.7); EOSINOPHILS % (AUTO) 2.6 % (0.0-7.0); HEMATOCRIT 46.4 % (42.0-52.0); HEMOGLOBIN 14.6 g/dl (14.0-18.0); IMMATURE GRANULOCYTE % (AUTO) 0.4 % (0.0-5.0); LYMPHOCYTES # (AUTO) 1.7 K/uL (0.60-3.4); LYMPHOCYTES % (AUTO) 20.9 (10.0-50.0); MEAN CORPUSCULAR HEMOGLOBIN 25.1 pg (27.0-31.0); MEAN CORPUSCULAR HGB CONC 31.5 (31.8-35.4); MEAN CORPUSCULAR VOLUME 79.7 fl (80.0-94.0); MONOCYTES # (AUTO) 0.9 K/uL (0.4-2.0); MONOCYTES % (AUTO) 10.5 (0-10); NEUTROPHILS # (AUTO) 5.3 K/ul (2.0-6.9); NEUTROPHILS % (AUTO) 64.7; PLATELET COUNT 149 10^3/uL (140-440); RED BLOOD COUNT 5.82 10^6/ul (4.70-6.10); WHITE BLOOD COUNT 8.19 K/ul (4.2-10.2)
[2017-01-27 05:54] LABS: ANION GAP 15.5; BUN/CREATININE RATIO 12.22; CALCIUM 9.9 mg/dL (8.2-10.2); CREATININE 0.9 mg/dL (0.60-1.10); POTASSIUM 3.5 mmol/L (3.5-5.1)
[2017-01-27] MEDS: LIBRIUM PO SCH ×2 (06:47→12:19)
[2017-01-27] MEDS: HYDROCHLOROTHIAZIDE PO SCH (08:18)
[2017-01-27] MEDS: THIAMINE IVP SCH (08:18)
[2017-01-27] MEDS: ZESTRIL PO SCH (08:18)
[2017-01-27] MEDS: TOPROL XL PO SCH (08:18)
[2017-01-27] MEDS: LOVENOX SUBCUT SCH (08:19)
[2017-01-27 11:05] VITALS: BP 136/100; TEMP 97.2
--- NOTE | 2017-02-12 07:45 | HP ---
DATE OF SERVICE: 01/24/17 CHIEF COMPLAINT: Behavioral problems. HISTORY OF PRESENT ILLNESS: 36 year old male with a history of alcohol problems had been having problems with shaking for two days. No appetite. Admitted to drinking wine yesterday on the day of admission. He is under a great deal of stress due to his recent divorce proceedings. His face is flushed and he has a history of rosacea. The patient's mother is with him. As the patient is shivering and this was getting worse, the patient was brought to the emergency room. He was seen by Dr. Briones in the emergency room and admitted to the hospital for acute alcohol intoxication and alcohol withdrawal and behavioral problems. REVIEW OF SYSTEMS: CONSTITUTIONAL: Weakness, tiredness. Shaking and jitteriness. No fever, no chills. HEENT: Normal. ENDOCRINE: No weight gain; no weight loss. CVS: No chest pain. No PND, no orthopnea. No shortness of breath. No PND, no orthopnea. RESPIRATORY: No cough, no congestion. No hemoptysis. GI: No nausea, no vomiting. No abdominal pain. No melena. : No hematuria. No polyuria. MUSCULOSKELETAL: No joint swelling. PSYCHIATRIC: Anxiety and stress. SKIN: Intact, no open lesions. PAST MEDICAL HISTORY: History of chest pain Seizure disorder 12-13 years ago The patient has stomach ulcers. Gastroesophageal reflux disease Osteoarthritis, psoriatic type History of hyperglycemia, secondary to steroids Depression Anxiety PAST SURGICAL HISTORY: Appendectomy PERSONAL HISTORY: Recent divorce. Alcohol use of beer, vodka. Nicotine use. FAMILY HISTORY: Significant for breast cancer, diabetes and thyroid problems. HOME MEDICATIONS: Hydrochlorothiazide 50 mg daily Lisinopril 20 mg daily Metoprolol 50 mg every a.m. Humira 40 mg SQ as directed ALLERGIES: No known drug allergies. PHYSICAL EXAMINATION: V/S: Blood pressure 117/106, respiratory 20, heart rate 114, temperature 99. HEENT: Atraumatic, normocephalic. No scleral icterus. Pallor positive. No icterus. Mucosa dry. NECK: Supple. No JVD, no bruit. No lymphadenopathy. No thyromegaly. HEART: S1, S2 normal. No murmur. No cyanosis or clubbing. No ascites. LUNGS: Clear to auscultation. No rales or rhonchi. ABDOMEN: Soft, nontender. Bowel sounds are active. No CVA tenderness. No rigidity or guarding. EXTREMITIES: No cyanosis, clubbing or pedal edema. MUSCULOSKELETAL: Normal joints, no swelling. NEUROLOGIC: Shaking, jitteriness in the hands and flushed face. SKIN: Intact; no open lesions. LYMPHATIC: No lymph nodes palpable. LABS: White count 3.87, hemoglobin 14.8, hematocrit 44.6, platelet count 131, sodium 145, potassium 3.4, chloride 104, bicarb 27, BUN 5, creatinine 0.86, glucose 129, AST 139. Blood alcohol level 325.7. ASSESSMENT: 1. ACUTE ALCOHOL INTOXICATION WITH ALCOHOL WITHDRAWALS, EARLY 2. ANXIETY DISORDER 3. PSORIATIC OSTEOARTHRITIS 4. HYPOKALEMIA 5. HYPERTENSION UNCONTROLLED PLAN: 1. Admit the patient to the observation. 2. Banana bag. 3. IV fluids with MVI. 4. Ativan 2 mg every 4 to 6 hours. 5. Lovenox 40 mg subq daily. 6. Zestril 20 mg p.o. daily. 7. Metoprolol 50 mg daily. 8. Zofran. TIME SPENT: MORE THAN 70 minutes today. MTDD
--- NOTE | 2017-02-12 07:54 | PN ---
DATE OF SERVICE: 01/26/17 SUBJECTIVE: The patient was admitted with alcohol withdrawal symptoms. The patient is more stable and did not have any acute episodes over the night. Blood pressure is under control. REVIEW OF SYSTEMS: CONSTITUTIONAL: No fever, no chills. HEENT: Normal. ENDOCRINE: No weight gain, no weight loss. CVS: No angina symptoms. No CHF symptoms. No palpitations. No atypical chest pain for CAD. No shortness of breath. No PND, no orthopnea. RESPIRATORY: No cough, no hemoptysis. GI: No nausea, no vomiting. No abdominal pain. : No hematuria. No polyuria. MUSCULOSKELETAL:. No joint swelling. PSYCHIATRIC: Not anxious. No depression. No suicidal thoughts. No homicidal thoughts. SKIN: Intact. No rash. PHYSICAL EXAMINATION: V/S: Blood pressure 137/92, respiratory rate 18, heart rate 68, temperature 97.4. HEENT: Normocephalic, atraumatic. Mucosa dry. NECK: Supple. No JVD, no carotid bruit. No lymphadenopathy. LUNGS: Decreased and clear. No rales or rhonchi. HEART: S1, S2 normal. No S3. No murmur, gallop or regurgitation. ABDOMEN: Soft, nontender. Bowel sounds active. No rigidity. No rebound or guarding. No CVA tenderness. EXTREMITIES: No clubbing, cyanosis or pedal edema. MUSCULOSKELETAL: No joint swelling. NEUROLOGIC: Awake, alert, oriented times three. No focal deficit. LYMPHATIC: No lymph nodes palpable. SKIN: Multiple areas of psoriatic lesions. LABS: White count 5.20, hemoglobin 13.9, hematocrit 43.7, platelet count 103, sodium 143, potassium 0.5, chloride 101, bicarb 28, BUN 6, creatinine 0.83. ASSESSMENT: 1. ALCOHOL WITHDRAWALS 2. HYPERTENSION UNCONTROLLED 3. STATUS POST HYPOKALEMIA 4. PSORIATIC ARTHRITIS 5. DEPRESSION 6. ANXIETY 7. STRESS PLAN: 1. Continue the Lovenox for the DVT prophylaxis. 2. Librium. 3. IV fluids with MVI. 4. Thiamine. 5. Activity as tolerated. 6. Will follow up with the patient in daily rounds. TIME SPENT: More than 40 minutes today. SOLOD
--- NOTE | 2017-02-18 10:40 | DS ---
DATE OF SERVICE: 01/27/17 FINAL DIAGNOSIS: 1. Acute alcohol withdrawal symptoms, No Wernicke cenesthopathy 2. Hypertensive urgency, better 3. Depression 4. Anxiety 5. Psoriatic arthritis with skin lesions 6. Anemia 7. History of peptic ulcer disease 8. Alcohol use 9. Weight loss 10.GERD 11.History of appendectomy DISCHARGE INSTRUCTIONS: Discharge the patient home. Followup with the primary care physician within 5-7 days. MEDICATIONS AT DISCHARGE: Librium 25mg Q 8 hours Humira Lisinopril 20mg PO daily Metoprolol 100mg PO daily Thiamine NEW PRESCRIPTIONS: Librium Metoprolol Thiamine DIET INSTRUCTIONS: Cardiac and healthy ACTIVITY: As much as tolerated SMOKING: Current everyday smoker. DISEASE SPECIFIC EDUCATION: Alcohol Dependency Alcohol use Liver cirrhosis Uncontrolled hypertension Risk of stroke been discussed. HOSPITAL COURSE: Ronald Stover who was brought to the Emergency Room by the family after the patient going through a lot of stress; not been eating much, not been taking medication and blood pressure was elevated 170/119, been drinking more alcohol. Hgb and hct was normal, Potassium 3.4, AST was 136, urine was negative, drug screen was blood alcohol level was 325.7 then the patient did mention that patient was having some thoughts of hurting himself and he had been going through a lot of stress. The patient's mother was there with him. Mental Health consultation was obtained. After that the patient was admitted to the hospital and started on the IV fluids with AMBI and Librium was given. The patient went into alcohol withdraw symptoms; very shaky, anxious, confused, agitated. Haldol had been given and Ativan has been given. Finally he got slowly under control. Thiamine was started right away. Slowly the pressure started coming down. Up and about and walking. Did not have any problems. His memory was intact throughout the hospital stay. The patient's mother was willing to take him and was going to help him. Alcohol anonymous group been talked about and verbalized understanding and he promised not to do the alcohol anymore. As the patient was getting better and blood pressure is also under control at that time the patient is being discharged home. TIME SPENT: MORE THAN 55 MINUTES MTDD
--- NOTE | 2017-02-18 11:03 | PN ---
DATE OF SERVICE: 01/25/17 SUBJECTIVE: The patient was admitted with alcohol intoxication and going through the bad alcohol withdraw and hypertensive uncontrolled. The patient had been having depression problem and talking to the mental health worker. Still having the shaky and still having some restlessness, aggressive behavior and hallucination. Has to be given Ativan and Haldol. Blood pressure was as high as 170/110. No headache and no blurry vision. As of now resting and feeling better. REVIEW OF SYSTEMS: CONSTITUTIONAL: No fever, no chills. HEENT: Normal. ENDOCRINE: No weight gain, no weight loss. CVS: No angina symptoms. No CHF symptoms. No palpitations. No atypical chest pain for CAD. No shortness of breath. No PND, no orthopnea. RESPIRATORY: No cough, no hemoptysis. GI: No nausea, no vomiting. No abdominal pain. : No hematuria. No polyuria. MUSCULOSKELETAL:. No joint swelling. PSYCHIATRIC: Not anxious. No depression. No suicidal thoughts. No homicidal thoughts. SKIN: Intact. No rash. PHYSICAL EXAMINATION: V/S: Blood pressure 148/98, respiratory rate 16, heart rate 72 and temperature 98.1. HEENT: Normocephalic, atraumatic. Mucosa dry. NECK: Supple. No JVD, no carotid bruit. No lymphadenopathy. LUNGS: Clear to auscultation. No rales or rhonchi. HEART: S1, S2 normal. No S3. No murmur, gallop or regurgitation. ABDOMEN: Soft, nontender. Bowel sounds active. No rigidity. No rebound or guarding. No CVA tenderness. EXTREMITIES: No clubbing, cyanosis or pedal edema. MUSCULOSKELETAL: No joint swelling. NEUROLOGIC: Awake, alert, oriented times three. No focal deficit. No confabulation. Some tremors in the hand. LYMPHATIC: No lymph nodes palpable. SKIN: Intact. A lot of psoriatic rash on the elbow and the knees and anterior chest. LABS: WBC 5.09, hgb 14.1, hct 43.3, plt count 110, sodium 137, potassium 3.7, chloride 103, bicarb 22, BUN 4 and creatinine 0.82 and glucose 125. ASSESSMENT: 1. Alcohol intoxication 2. Alcohol withdrawal 3. Hypertension, controlled 4. Depression 5. Psoriatic arthritis 6. Weight loss 7. History of peptic ulcer PLAN: 1. Will continue the Haldol 2. IV fluids 3. Ativan Q 4-6 hours 4. Zofran PRN 5. Thiamine 6. IV fluids with multivitamins 7. Haldol PRN for the anxiety and aggressive behavior 8. Vasotec IV push for the systolic blood pressure more than 180. TIME SPENT: More than 35 minutes MTDD
== END 2017-01-27 12:25 | disposition home or self-care (01) ==
LOC: ED 17:15 → SCU 21:29 → MEDSURG A 01-27 00:05
PROVIDERS: ADMIT Emergency Medicine; ATTEND Emergency Medicine
DX: F10.232 Alcohol dependence with withdrawal with perceptual disturbance (principal); I16.0 Hypertensive urgency; R45.851 Suicidal ideations; F41.8 Other specified anxiety disorders; Y90.8 Blood alcohol level of 240 mg/100 ml or more; D64.9 Anemia, unspecified; K27.7 Chronic peptic ulcer, site unspecified, without hemorrhage or perforation; R63.4 Abnormal weight loss; K21.9 Gastro-esophageal reflux disease without esophagitis; F17.200 Nicotine dependence, unspecified, uncomplicated; L40.50 Arthropathic psoriasis, unspecified; L71.9 Rosacea, unspecified; Z63.5 Disruption of family by separation and divorce; E87.6 Hypokalemia; Z86.59 Personal history of other mental and behavioral disorders; Z79.899 Other long term (current) drug therapy
CPT/HCPCS: 36415; 80048; 80053; 80306; 80307; 81001; 84439; 84443; 85008; 85025; 87081; 93005; 93010; 96361; 96374; 96375; 97802; 99284

== ENCOUNTER 2017-02-06 14:24 | Outpatient (CLI) ==
[2017-02-06 14:52] VITALS: BMI 32.3
== END 2017-02-06 14:25 | disposition home or self-care (01) ==
LOC: AMBL 14:24
PROVIDERS: ATTEND Internal Medicine
DX: F10.129 Alcohol abuse with intoxication, unspecified (principal); E11.9 Type 2 diabetes mellitus without complications; S80.212A Abrasion, left knee, initial encounter; W19.XXXA Unspecified fall, initial encounter

== ENCOUNTER 2017-02-06 14:35 | Emergency (ER) ==
[2017-02-06 14:52] VITALS: TEMP 98.1; BMI 32.3
[2017-02-06 14:55] VITALS: BP 143/96
[2017-02-06 15:20] LABS: BASOPHILS # (AUTO) 0.1 K/uL (0-0.2); BASOPHILS % (AUTO) 1.4 % (0.0-3.0); EOSINOPHILS # (AUTO) 0.2 K/ul (0.0-0.7); EOSINOPHILS % (AUTO) 2.8 % (0.0-7.0); HEMATOCRIT 44.3 % (42.0-52.0); HEMOGLOBIN 14.1 g/dl (14.0-18.0); IMMATURE GRANULOCYTE % (AUTO) 0.2 % (0.0-5.0); LYMPHOCYTES # (AUTO) 2.6 K/uL (0.60-3.4); LYMPHOCYTES % (AUTO) 30.4 (10.0-50.0); MEAN CORPUSCULAR HEMOGLOBIN 25.4 pg (27.0-31.0); MEAN CORPUSCULAR HGB CONC 31.8 (31.8-35.4); MEAN CORPUSCULAR VOLUME 79.8 fl (80.0-94.0); MONOCYTES # (AUTO) 0.6 K/uL (0.4-2.0); MONOCYTES % (AUTO) 7.5 (0-10); NEUTROPHILS # (AUTO) 4.9 K/ul (2.0-6.9); NEUTROPHILS % (AUTO) 57.7; PLATELET COUNT 452 10^3/uL (140-440); RED BLOOD COUNT 5.55 10^6/ul (4.70-6.10); WHITE BLOOD COUNT 8.56 K/ul (4.2-10.2)
[2017-02-06 15:50] LABS: ALANINE AMINOTRANSFERASE 63 U/L (12-78); ALBUMIN 3.2 g/dL (3.4-5.0); ALKALINE PHOSPHATASE 143 U/L (50-136); ANION GAP 16.6; ASPARTATE AMINO TRANSFERASE 78 U/L (15-37); BILIRUBIN,TOTAL 0.53 mg/dL (0.00-1.20); BLOOD UREA NITROGEN 6 mg/dL (7-18); BUN/CREATININE RATIO 7.31; CALCIUM 8.6 mg/dL (8.2-10.2); CARBON DIOXIDE 27 mmol/L (21-32); CHLORIDE 106 mmol/L (98-107); CREATINE KINASE 79 U/L; CREATININE 0.82 mg/dL (0.60-1.10); GLUCOSE 104 mg/dL (70-100); POTASSIUM 3.6 mmol/L (3.5-5.1); SODIUM 146 mmol/L (136-145); TOTAL PROTEIN 7.2 g/dL (6.4-8.2)
--- NOTE | 2017-02-06 15:53 | ED.PDOC ---
General ED Provider: Dr. CLEOPATRA FRANKS Chief Complaint: Alcohol Intoxication Stated Complaint: INTOXICATED Time Seen by Physician: 14:40 (NO PAIN OR DISCOMFORT AOX3 COHERENT) Mode of Arrival: Ambulance Information Source: Patient, EMT Exam Limitations: No limitations Primary Care Provider: BROCK OCONNELL Nursing and Triage Documentation Reviewed and Agree: Yes (SEEN WITH AMENA, DENIED TRAUMA) Miscellaneous Complaint Exam - Complex/Multi-System Complaint/Exam Onset/Duration: FOUND INTOXICATED BETWEEN 2 BUILDINGS BROUGHT TO E/D FOR EVAL Symptoms Are: Still present Episodes Lasting: Hours Initial Severity: Mild Current Severity: Mild Location of Pain: DENIED PAIN Pain Radiates to: NO OBVIOUS INJURY AOX3 COHERENT , LOGICAL , GOOD INSIGHT Character: DENIED ANY INJURY/PAIN OR DISCOMFORT SEEN WITH AMENA RN AT ALL TIMES Aggravating: ETOH Alleviating: NONE Recent Echo/LV Function: No Respiratory Distress: None JVD Present: No Tachypnea Present: No Stridor Present: No Abdominal Findings: Present: Normal findings Glascow Coma Scale (see protocol): 15 Meningeal Signs Positive: No Focal Weakness: Present: None Focal Sensory Loss: Present: None Gait: Normal Gag Reflex Present: Yes Babinski Sign: Negative Right, Negative Left Skin Findings: Present: Normal findings Joint Swelling Present: No In-Dwelling Device Present: No Differential Diagnosis: Cardiac Ischemia, Metabolic Abnormality, Sepsis Quality Indicators for Cardiac Chest Pain: EKG in 10min. Review of Systems - Review Of Systems Constitutional: Reports: Malaise Eyes: Reports: No symptoms Ears, Nose, Mouth, Throat: Reports: No symptoms Respiratory: Reports: Cough Cardiac: Reports: No symptoms GI: Reports: No symptoms : Reports: No symptoms Musculoskeletal: Reports: No symptoms Skin: Reports: No symptoms Neurological: Reports: Headache Endocrine: Reports: No symptoms Hematologic/Lymphatic: Reports: No symptoms All Other Systems: Reviewed and Negative Past Medical History - Past Medical History Previously Healthy: No Endocrine: Reports: None Cardiovascular: Reports: Hypertension Respiratory: Reports: None Hematological: Reports: None Gastrointestinal: Reports: None Genitourinary: Reports: None Neuro/Psych: Reports: None Musculoskeletal: Reports: Arthritis, Joint Pain Cancer: Reports: None - Surgical History General Surgical History: Reports: Orthopedic (ankle ) - Family History Family History: Reports: None - Social History Smoking Status: Current every day smoker Hx Substance Use: No Alcohol Screening: Heavy - Immunizations Tetanus Shot up to Date: (cannot recall) Physical Exam - Physical Exam Appearance: Well-appearing, No pain distress, Well-nourished Eyes: SHO, EOMI, Conjunctiva clear ENT: Ears normal, Nose normal, Oropharynx normal Respiratory: Airway patent, Breath sounds clear, Breath sounds equal, Respirations nonlabored Cardiovascular: RRR, Pulses normal, No rub, No murmur GI/: Soft, Nontender, No masses, Bowel sounds normal, No Organomegaly Musculoskeletal: Normal strength, ROM intact, No edema, No calf tenderness Skin: Warm, Dry, Normal color Neurological: Sensation intact, Motor intact, Reflexes intact, Cranial nerves intact, Alert, Oriented Psychiatric: Affect appropriate, Mood appropriate Interpretation - Radiology Interpretation Radiology Interpretation By: Radiologist Radiology Results: No acute changes Re-Evaluation - Re-Evaluation Time of Re-Evaluation: 15:00 Status: Improved Vital Signs Stable: Yes Pain Level: 0 Appearance: NAD Lungs: Clear Skin: Warm and Dry Neuro: Alert and Oriented X3 CV: RRR - Re-Evaluation Time of Re-Evaluation: 15:40 Pain Level: 0 Appearance: NAD Skin: Warm and Dry Neuro: Alert and Oriented X3 CV: RRR (MOTHER ARRIVED PT LEFT AMA WITH HIS MOTHER) Critical Care Note - Critical Care Note Total Time (mins): 0 Course - Course Hematology/Chemistry: 02/06/17 15:18 Orders, Labs, Meds: Lab Review 02/06/17 15:18 WBC 8.56 RBC 5.55 Hgb 14.1 Hct 44.3 MCV 79.8 L MCH 25.4 L MCHC 31.8 RDW Coeff of Lissy 21.8 H Plt Count 452 H Immature Gran % (Auto) 0.2 Neut % (Auto) 57.7 Lymph % (Auto) 30.4 [place] % (Auto) 7.5 Eos % (Auto) 2.8 Baso % (Auto) 1.4 Immature Gran # (Auto) 0.0 Neut # 4.9 Lymph # 2.6 [place] # 0.6 Eos # 0.2 Baso # 0.1 Lactic Acid 34.4 H Plasma/Serum Alcohol 392.2 H Orders Category Date Time Status BLOOD CULTURE Stat LAB 02/06/17 15:18 Received CBC W/ AUTO DIFF Stat LAB 02/06/17 15:18 Completed COMPREHENSIVE METABOLIC PANEL Stat LAB 02/06/17 15:18 Received CREATINE KINASE Stat LAB 02/06/17 15:18 Received ETOH LEVEL [BLOOD ALCOHOL] Stat LAB 02/06/17 15:18 Completed LACTIC ACID Stat LAB 02/06/17 15:18 Completed PROCALCITONIN Stat LAB 02/06/17 15:18 Received TROPONIN I Stat LAB 02/06/17 15:18 Received URINE DRUG SCREEN (RAPID FOR ED) [DRUG SCREEN, URINE, LAB 02/06/17 14:48 Uncollected RAPID] Stat CT ABDOMEN/PELVIS WO CONTRAST Stat RADS 02/06/17 14:[address] CHEST W/O CONTRAST Stat RADS 02/06/17 14:[address] HEAD W/O CONTRAST Stat RADS 02/06/17 14:49 Taken Vital Signs: Temp Pulse Resp BP Pulse Ox 02/06/17 14:52 109 H 16 143/96 H 95 02/06/17 14:37 98.1 F 109 H 16 133/110 H 96 Departure - Departure Time of Disposition: 15:48 Disposition: AMA Discharge Problem: Alcohol intoxication Instructions: Alcohol Intoxication (ED) Condition: Good Pt referred to PMD for follow-up: No (LEFT AMA ) Allergies/Adverse Reactions: Allergies No Known Allergies Allergy (Verified 01/23/17 17:25) Home Medications: Ambulatory Orders Adalimumab [Humira] 40 mg SQ DIRECTED 08/13/16 Lisinopril 10 mg PO DAILY 08/13/16 Chlordiazepoxide HCl [Librium] 25 mg PO Q8HR #30 capsule 01/27/17 Metoprolol Succinate [Toprol Xl] 100 mg PO DAILY #30 tab.er.24h 01/27/17 Vitamin B-1 [Thiamine] 100 mg PO DAILY #30 tablet 01/27/17
--- NOTE | 2017-02-06 16:05 | CT ---
EXAM: CT head without contrast. HISTORY: Altered mental status. Head pain. COMPARISON: None available. TECHNIQUE: Multiple axial images of the brain were obtained from the skull base through the vertex without intravenous contrast. FINDINGS: There is no intracranial hemorrhage or extraaxial collection. The sesay-white differentia tion is maintained without evidence for acute large vascular territory infarction. The cortical sul ci and basal cisterns are well visualized. There is no hydrocephalus, mass effect, or midline shift . Subtle contour abnormality of the visualized right maxillary sinus may be due to old facial fract ure. The paranasal sinuses and mastoid air cells are clear. The calvarium is intact. IMPRESSION: No acute intracranial abnormality.
--- NOTE | 2017-02-06 16:10 | CT ---
EXAM: CT abdomen pelvis without contrast HISTORY: Pain, found in parking lot COMPARISON: 08/13/2016 TECHNIQUE: CT abdomen pelvis performed without intravenous contrast. Coronal and sagittal reformat danuta images obtained. FINDINGS: Please see separate port CT chest great findings in the lower chest. No free air. No ac [place] abnormalities of the bones. Evaluation organ parenchyma limited without contrast. Liver diffuse ly decreased attenuation. Gallbladder appears normal. Pancreas appears normal. Spleen appears nor mal. Adrenals appear normal. Kidneys appear normal. Bladder is distended otherwise unremarkable. Prostate normal in size. Aorta normal in caliber. Stomach appears normal. No dilated loops small bowel. Patient status post appendectomy. Colon unremarkable. Small fat-containing umbilical reinaldo ia. No inflammatory stranding identified in the abdomen pelvis. IMPRESSION: 1. No acute abnormality identified in the abdomen or pelvis. 2. Hepatic steatosis.
--- NOTE | 2017-02-06 16:15 | CT ---
Exam: CT of the chest without intravenous contrast. Comparison: Chest x-ray performed on 08/13/2016. Reason for exam: Cough. FINDINGS: Image interpretation is limited by the lack of intravenous contrast administration. No pneumothorax, pleural effusion, or focal consolidation. Patchy ground-glass and increased vascul arity in the lung bases. The heart is not enlarged. The aorta is normal in course and caliber. The partially imaged upper abdomen appears grossly unremarkable. No suspicious appearing osteoblastic or osteolytic lesions. Impression: 1. No acute imaging findings are seen within the thorax. 2. Patchy ground-glass and prominent appearing dependent vascularity may represent inflammation or early infection. No focal consolidation is seen. Recommend follow up imaging to document resolution. Report faxed at 1612 hours on 02/06/2017
== END 2017-02-06 15:46 | disposition left against medical advice (07) ==
LOC: ED 14:35
DX: F10.129 Alcohol abuse with intoxication, unspecified (principal); I10 Essential (primary) hypertension; R51 Headache; R05 Cough; F17.210 Nicotine dependence, cigarettes, uncomplicated; Z79.899 Other long term (current) drug therapy
CPT/HCPCS: 36415; 80053; 80307; 82550; 83605; 84145; 84484; 85025; 87040; 99284